=== PATIENT | male | born 1975 | race Hispanic/Latino ===

== ENCOUNTER 2020-06-10 20:30 | Emergency (ER) | payer OTHER ==
[2020-06-10] MEDS ORDERED: Acetaminophen 500 MG TAB ONE (21:02)
[2020-06-10] MEDS ORDERED: cefTRIAXone\\ROCEPHIN 2 GM VIAL ONE (21:02)
[2020-06-10] MEDS ORDERED: Ketorolac Tromethamine 30 MG/ML VIAL ONE (21:02)
[2020-06-10 21:07] LABS: #Lymphocytes 1.1 thou/uL (1.20-3.40); #Monocytes 0.2 thou/uL (0.11-0.59); #Neutrophils 5.8 thou/uL (1.40-6.50); %Eosinophils 0.1 % (0.0-10.0); %Lymphocytes 14.8 % (21.0-51.0); %Monocytes 3.4 % (0.0-10.0); %Neutrophils 81.8 % (42.0-75.0); Hemoglobin 14.9 g/dL (14.0-18.0); Mean Corpuscular HGB CONC 33.2 g/dL (32.0-36.0); Mean Corpuscular Hemoglobin 29.2 pg (27.0-31.0); Mean Corpuscular Volume 87.8 fL (78.0-98.0); Mean Platelet Volume 6.7 fL (7.4-10.4); Platelet Count 233 thou/uL (130-400); RBC Distribution Width 11.8 % (11.5-14.5); Red Blood Cell (RBC) Count 5.11 mill/uL (4.70-6.10); White Blood Cell (WBC) Count 7.1 thou/uL (4.8-10.8)
--- NOTE | 2020-06-10 21:07 | RAD ---
Exam: Chest one view HISTORY:COVID patient. Cough. Comparison: None FINDINGS: Cardiac silhouette: Normal Aorta: Unremarkable Pulmonary vessels: Normal Costophrenic angles: Clear LUNGS: Multi lobar interstitial and alveolar opacities. Pneumothorax: None Osseous abnormalities: None IMPRESSION: Multi lobar COVID pneumonia
[2020-06-10 21:30] LABS: ALT (SGPT) 30 U/L (8-55); AST (SGOT) 29 U/L (5-34); Albumin 3.7 g/dL (3.5-5.0); Alkaline Phosphatase 55 U/L (40-110); Anion Gap 15 mmol/L (10-20); BUN (Urea Nitrogen) 11 mg/dL (8.9-20.6); Bilirubin, Total 0.5 mg/dL (0.2-1.2); Calc. Creatinine Clearance 0 mL/min (70-130); Calcium 8.4 mg/dL (7.8-10.44); Carbon Dioxide 24 mmol/L (22-29); Chloride 101 mmol/L (98-107); Globulin 4.1 g/dL (2.4-3.5); Glucose 145 mg/dL (70-105); Protein, Total 7.8 g/dL (6.0-8.3); Sodium 136 mmol/L (136-145)
== END 2020-06-10 22:58 | disposition home or self-care (01) ==
LOC: ERS 20:30
DX: U07.1 COVID-19 (principal); J12.82 Pneumonia due to coronavirus disease 2019; R55 Syncope and collapse
CPT/HCPCS: 36415; 71045; 80053; 83605; 85025; 87040; 93005; 96365; 96375; J0696; J1885

== ENCOUNTER 2020-06-12 12:55 | Inpatient (IN) | payer SELFPAY ==
[2020-06-12] MEDS ORDERED: Dexamethasone 4 mg/ml Vial ONE (14:34)
[2020-06-12 21:59] VITALS: BMI 35.5
[2020-06-13] MEDS: Benzonatate 100 MG CAP PO PRN ×3 (03:34→20:56)
[2020-06-13] MEDS ORDERED: REMDESIVIR (EUA) 200 MG in Sodium Chloride 0.9% 250 ML 210 ML IV SCH (04:00)
[2020-06-13 05:17] LABS: SARS-CoV-2 MS2 Positive; SARS-CoV-2 N Gene Positive; SARS-CoV-2 S Gene Positive; SARS-CoV-2 by NAA DETECTED (NotDetected); SARS-CoV-2 orf1ab Positive
[2020-06-13] MEDS ORDERED: hydrALAZINE 10 MG TAB PO PRN (07:04)
[2020-06-13] MEDS ORDERED: cefTRIAXone\\ROCEPHIN 1 GM in Sodium Chloride 0.9% 100 ML IVPB SCH (08:00)
[2020-06-13] MEDS: Dexamethasone 4 MG TAB PO SCH (08:06)
[2020-06-13] MEDS: Enoxaparin Sodium 40 MG/0.4 ML SYRINGE SC SCH (08:06)
[2020-06-13] MEDS: Lisinopril 5 MG TAB PO SCH (08:06)
[2020-06-13] MEDS: Azithromycin 500 MG in Sodium Chloride 0.9% 250 ML 250 ML IVPB SCH (08:07)
[2020-06-13] MEDS ORDERED: FLU VACC QS2020-21(6MOS UP)/PF 60 MCG/0.5 ML SYRINGE IM ONE (21:00)
[2020-06-14] MEDS: Benzonatate 100 MG CAP PO PRN ×2 (02:10→21:23)
[2020-06-14] MEDS: REMDESIVIR (EUA) 100 MG in Sodium Chloride 0.9% 250 ML 230 ML IV SCH (04:13)
--- NOTE | 2020-06-14 06:14 | PDOC.FM ---
- Subjective Subjective: Reports poor sleep last night. Denies SOB or wheezing. No headache, vision changes, chest pain, palpitations and abdominal pain. - Objective MAR Reviewed: Yes Vital Signs & Weight: Vital Signs (12 hours) Temp Pulse Resp BP Pulse Ox 06/13/20 19:26 97.5 F L 80 18 155/83 H 96 Weight Admit Weight 115.666 kg Weight 115.666 kg I&O: 06/12/20 06/13/20 06/14/20 06:59 06:59 06:59 Intake Total 1220 1750 Output Total 300 Balance 920 1750 Phys Exam - Physical Examination Constitutional: NAD HEENT: moist MMs, sclera anicteric Neck: supple Respiratory: no wheezing, no rales, no rhonchi, clear to auscultation bilateral Sat 95% on 4L Cardiovascular: RRR, no significant murmur Gastrointestinal: soft, non-tender, positive bowel sounds Musculoskeletal: no edema Neurological: non-focal Psychiatric: normal affect Skin: no rash Dx/Plan - Plan Plan: Patient is a 44 y/o male with an unremarkable PMH who presents to the ED for evaluation of SOB and suspicion of COVID-19 infection. #AHRF 2/ COVID PNA -Patient's symptoms reportedly began on 06/02. Initial lab work: D-Dimer: 1.29, Procal: 0.4, ESR: 95, Ferritin: 4021, CRP: 23.81, LDH: 567. On admission, patient was sat'ing 85% on RA -CXR: Bilateral interstitial and alveolar infiltrates, consistent with COVID-19 PNA -CTA: Negative for PE, bilateral interstitial and alveolar infiltrates, consistent with COVID-19 PNA -s/p Remdesivir, Convalescent Plasma, Azithro (06/12-06/14), Ceftriaxone (06/12-06/13) -Dexamethasone 6 mg IV daily -Wean O2 as tolerated. Currently on 4L NC #Elevated BP w/o Dx of HTN Multiple elevated BPs since admission without a reported Dx of HTN -Continue Lisinopril 5 mg PO daily -Hydralazine 10 mg PO PRN #Poor sleep -Start melatonin HS PCP: CC Code: Full Diet: HH w/ Low Sodium Activity: Ad jesika VTE PPx: Lovenox 40 mg SC BID Dispo: Patient is currently stable and admitted to the Medical Floor for ongoing management s/p AHRF due to COVID-19 PNA. Will continue to monitor respiratory status closely and continue with pharmacological intervention as per above Addendum - Attending - Attending Attestation Date/Time: 06/14/20 1744 I personally evaluated the patient and discussed the management with Dr. Streeter I agree with the History, Examination, Assessment and Plan documented above with any addition or exceptions noted below.
[2020-06-14] MEDS: Dexamethasone 4 MG TAB PO SCH (08:21)
[2020-06-14] MEDS: Azithromycin 500 MG in Sodium Chloride 0.9% 250 ML 250 ML IVPB SCH (08:21)
[2020-06-14] MEDS: Lisinopril 5 MG TAB PO SCH (08:21)
[2020-06-14] MEDS: Enoxaparin Sodium 40 MG/0.4 ML SYRINGE SC SCH (08:22)
[2020-06-14] MEDS ORDERED: Melatonin 3 MG TAB PO PRN (09:04)
[2020-06-15] MEDS: REMDESIVIR (EUA) 100 MG in Sodium Chloride 0.9% 250 ML 230 ML IV SCH (04:08)
--- NOTE | 2020-06-15 06:21 | PDOC.FM ---
- Subjective Subjective: Reports feeling well. Denies headache, chest pain, SOB, nausea, abdominal pain and edema. Notes occasional SOB with ambulation. - Objective MAR Reviewed: Yes Vital Signs & Weight: Vital Signs (12 hours) Temp Pulse Resp BP Pulse Ox 06/14/20 23:56 98.0 F 67 18 161/82 H 95 06/14/20 20:00 97.9 F 74 18 165/78 H 93 L Weight Admit Weight 115.666 kg Weight 115.666 kg I&O: 06/13/20 06/14/20 06/15/20 06:59 06:59 06:59 Intake Total 1220 1750 Output Total 300 Balance 920 1750 Phys Exam - Physical Examination Constitutional: NAD HEENT: moist MMs, sclera anicteric Neck: full ROM Respiratory: clear to auscultation bilateral Cardiovascular: RRR, no significant murmur Gastrointestinal: soft, non-tender, positive bowel sounds Musculoskeletal: no edema Neurological: non-focal Psychiatric: normal affect Skin: no rash Dx/Plan - Plan Plan: Patient is a 44 y/o male with an unremarkable PMH who presents to the ED for evaluation of SOB and suspicion of COVID-19 infection. #AHRF 2/ COVID PNA -Patient's symptoms reportedly began on 06/02. Initial lab work: D-Dimer: 1.29, Procal: 0.4, ESR: 95, Ferritin: 4021, CRP: 23.81, LDH: 567. On admission, patient was sat'ing 85% on RA -CXR: Bilateral interstitial and alveolar infiltrates, consistent with COVID-19 PNA -CTA: Negative for PE, bilateral interstitial and alveolar infiltrates, consistent with COVID-19 PNA -s/p Remdesivir, Convalescent Plasma, Azithro (06/12-06/14), Ceftriaxone (06/12-06/13) -Dexamethasone 6 mg IV daily -Wean O2 as tolerated. Currently on 4L NC #Elevated BP w/o Dx of HTN Multiple elevated BPs since admission without a reported Dx of HTN -Continue Lisinopril 5 mg PO daily -Hydralazine 10 mg PO PRN #Poor sleep -Start melatonin HS PCP: CC Code: Full Diet: HH w/ Low Sodium Activity: Ad jesika VTE PPx: Lovenox 40 mg SC BID Dispo: Patient is admitted to the Medical Floor for ongoing management s/p AHRF due to COVID-19 PNA. Has excellent clinical prognosis. If home O2 is available today, patient is stable for discharge. Given the clinical prognosis, would not benefit from additional doses of remdesivir. Addendum - Attending - Attending Attestation Date/Time: 06/15/20 0160 I personally evaluated the patient and discussed the management with Dr. Streeter I agree with the History, Examination, Assessment and Plan documented above with any addition or exceptions noted below. Patient stable for dismissal with home oxygen when this can be arranged.
[2020-06-15 06:35] LABS: ALT (SGPT) 38 U/L (8-55); AST (SGOT) 24 U/L (5-34); Alkaline Phosphatase 54 U/L (40-110); Bilirubin, Direct 0.2 mg/dL (0.1-0.3); Bilirubin, Total 0.5 mg/dL (0.2-1.2); Protein, Total 6.8 g/dL (6.0-8.3)
[2020-06-15] MEDS: Dexamethasone 4 MG TAB PO SCH (08:23)
[2020-06-15] MEDS: Lisinopril 5 MG TAB PO SCH (08:23)
[2020-06-15] MEDS: Enoxaparin Sodium 40 MG/0.4 ML SYRINGE SC SCH (08:24)
[2020-06-15] MEDS: Benzonatate 100 MG CAP PO PRN (22:29)
[2020-06-16] MEDS: REMDESIVIR (EUA) 100 MG in Sodium Chloride 0.9% 250 ML 230 ML IV SCH (04:53)
--- NOTE | 2020-06-16 06:14 | PDOC.FM ---
- Subjective Subjective: Reports feeling well today. Says he is ready to go home. Denies headache, chest pain, SOB, wheezing and palpitations. - Objective MAR Reviewed: Yes Vital Signs & Weight: Vital Signs (12 hours) Temp Pulse Resp BP Pulse Ox 06/15/20 20:00 98 06/15/20 19:34 97.7 F 68 18 159/81 H 98 Weight Admit Weight 115.666 kg Weight 115.666 kg I&O: 06/14/20 06/15/20 06/16/20 06:59 06:59 06:59 Intake Total 1750 Balance 1750 Phys Exam - Physical Examination Constitutional: NAD HEENT: moist MMs, sclera anicteric Neck: full ROM Respiratory: clear to auscultation bilateral Sat'ing 95% 4L Cardiovascular: RRR, no significant murmur Gastrointestinal: soft, non-tender, positive bowel sounds Musculoskeletal: no edema Neurological: non-focal Psychiatric: normal affect, A&O x 3 Skin: no rash Dx/Plan - Plan Plan: Patient is a 44 y/o male with an unremarkable PMH who presents to the ED for evaluation of SOB and suspicion of COVID-19 infection. #AHRF 2/ COVID PNA -Patient's symptoms reportedly began on 06/02. Initial lab work: D-Dimer: 1.29, Procal: 0.4, ESR: 95, Ferritin: 4021, CRP: 23.81, LDH: 567. On admission, patient was sat'ing 85% on RA -CXR: Bilateral interstitial and alveolar infiltrates, consistent with COVID-19 PNA -CTA: Negative for PE, bilateral interstitial and alveolar infiltrates, consistent with COVID-19 PNA -s/p Remdesivir, Convalescent Plasma, Azithro (06/12-06/14), Ceftriaxone (06/12-06/13) -Dexamethasone 6 mg IV daily -Wean O2 as tolerated. Currently on 4L NC. -CM consulted for home O2 need #Elevated BP w/o Dx of HTN Multiple elevated BPs since admission without a reported Dx of HTN -Continue Lisinopril 5 mg PO daily. F/u in clinic for further management -Hydralazine 10 mg PO PRN #Poor sleep -Melatonin HS PCP: CC Code: Full Diet: HH w/ Low Sodium Activity: Ad jesika VTE PPx: Lovenox 40 mg SC BID Dispo: Patient is admitted to the Medical Floor for ongoing management s/p AHRF due to COVID-19 PNA. Has excellent clinical prognosis. If home O2 is available today, patient is stable for discharge. Given the clinical prognosis, would not benefit from additional doses of remdesivir. Addendum - Attending - Attending Attestation Date/Time: 06/16/20 9812 I personally evaluated the patient and discussed the management with Dr. Streeter. I agree with the History, Examination, Assessment and Plan documented above with any addition or exceptions noted below. Patient feeling very well. Reports eagerness to discharge. He has been ambulating frequently around the room, feels very well and minimal DORSEY. He reports the lowest he has seen his O2 sats are 93% with ambulation. We are working to set up home O2, and if successful, possible dc home today.
[2020-06-16 07:18] LABS: ALT (SGPT) 50 U/L (8-55); AST (SGOT) 33 U/L (5-34); Albumin 3.2 g/dL (3.5-5.0); Alkaline Phosphatase 52 U/L (40-110); Bilirubin, Direct 0.2 mg/dL (0.1-0.3); Bilirubin, Total 0.5 mg/dL (0.2-1.2)
[2020-06-16] MEDS: Dexamethasone 4 MG TAB PO SCH (08:14)
[2020-06-16] MEDS: Lisinopril 5 MG TAB PO SCH (08:14)
[2020-06-16] MEDS: Enoxaparin Sodium 40 MG/0.4 ML SYRINGE SC SCH (08:14)
[2020-06-17] MEDS: REMDESIVIR (EUA) 100 MG in Sodium Chloride 0.9% 250 ML 230 ML IV SCH (04:58)
--- NOTE | 2020-06-17 06:46 | PDOC.FM ---
- Subjective Subjective: Reports he feels "great." Denies headache, chest pain, SOB and palpitations. Is ready to go home. - Objective MAR Reviewed: Yes Vital Signs & Weight: Vital Signs (12 hours) Temp Pulse Resp BP BP Pulse Ox 06/17/20 04:00 97.9 F 69 19 130/82 96 06/16/20 20:00 97.8 F 62 20 160/78 H 95 06/16/20 19:46 97.9 F 78 20 144/69 H 93 L Weight Admit Weight 115.666 kg Weight 115.666 kg I&O: 06/15/20 06/16/20 06/17/20 06:59 06:59 06:59 Intake Total 720 Balance 720 Phys Exam - Physical Examination Constitutional: NAD HEENT: moist MMs, sclera anicteric Neck: full ROM Respiratory: no wheezing, clear to auscultation bilateral Sat 92% on 2L Cardiovascular: RRR, no significant murmur Gastrointestinal: soft, non-tender, positive bowel sounds Musculoskeletal: no edema Neurological: non-focal Psychiatric: normal affect, A&O x 3 Skin: no rash Dx/Plan - Plan Plan: Patient is a 44 y/o male with an unremarkable PMH who presents to the ED for evaluation of SOB and suspicion of COVID-19 infection. #AHRF 2/2 COVID PNA -Patient's symptoms reportedly began on 06/02. Initial lab work: D-Dimer: 1.29, Procal: 0.4, ESR: 95, Ferritin: 4021, CRP: 23.81, LDH: 567. On admission, patient was sat'ing 85% on RA -CXR: Bilateral interstitial and alveolar infiltrates, consistent with COVID-19 PNA -CTA: Negative for PE, bilateral interstitial and alveolar infiltrates, consistent with COVID-19 PNA -s/p Remdesivir, Convalescent Plasma, Azithro (06/12-06/14), Ceftriaxone (06/12-06/13) -Dexamethasone 6 mg. Complete course today. -Wean O2 as tolerated. Currently on 2L NC. -CM consulted for home O2 need. #Elevated BP w/o Dx of HTN Multiple elevated BPs since admission without a reported Dx of HTN -Continue Lisinopril 5 mg PO daily. F/u in clinic for further management -Hydralazine 10 mg PO PRN #Poor sleep -Melatonin HS PCP: CC Code: Full Diet: HH w/ Low Sodium Activity: Ad jesika VTE PPx: Lovenox 40 mg SC BID Dispo: Patient is admitted to the Medical Floor for ongoing management s/p AHRF due to COVID-19 PNA. Has excellent clinical prognosis. Given the clinical prognosis, would not benefit from additional doses of remdesivir. Anticipate discharge today pending home O2 availability Addendum - Attending - Attending Attestation Date/Time: 06/17/20 6217 I personally evaluated the patient and discussed the management with Dr. Streeter. I agree with the History, Examination, Assessment and Plan documented above with any addition or exceptions noted below. Patient reports feeling very well. Apparently he was able to ambulate extensively yesterday without O2 supplement. We will ensure he is able to to do the same today and if so, will be able to d/c without the need for O2 concentrator.
[2020-06-17 06:55] LABS: ALT (SGPT) 64 U/L (8-55); AST (SGOT) 39 U/L (5-34); Albumin 3.3 g/dL (3.5-5.0); Alkaline Phosphatase 68 U/L (40-110); Bilirubin, Direct 0.2 mg/dL (0.1-0.3); Bilirubin, Total 0.4 mg/dL (0.2-1.2); Protein, Total 7.2 g/dL (6.0-8.3)
[2020-06-17] MEDS: Dexamethasone 4 MG TAB PO SCH (08:09)
[2020-06-17] MEDS: Lisinopril 5 MG TAB PO SCH (08:10)
[2020-06-17 08:44] VITALS: BP 148/88; TEMP 97.7
[2020-06-17] MEDS: Enoxaparin Sodium 40 MG/0.4 ML SYRINGE SC SCH (09:06)
== END 2020-06-17 12:06 | disposition home or self-care (01) | DRG 177 ==
LOC: ERS 12:55 → T4-B 17:34
PROVIDERS: ADMIT Family Medicine; ATTEND Family Medicine
PROC: 8E0ZXY6 Isolation (ICD-10-PCS; 2020-06-12)
PROC: XW033E5 Introduction of Remdesivir Anti-infective into Peripheral Vein, Percutaneous Approach, New Technology Group 5 (ICD-10-PCS; principal; 2020-06-13)
PROC: XW13325 Transfusion of Convalescent Plasma (Nonautologous) into Peripheral Vein, Percutaneous Approach, New Technology Group 5 (ICD-10-PCS; 2020-06-13)
DX: U07.1 COVID-19 (principal); J12.82 Pneumonia due to coronavirus disease 2019; J96.01 Acute respiratory failure with hypoxia; R03.0 Elevated blood-pressure reading, without diagnosis of hypertension; G47.9 Sleep disorder, unspecified; Z23 Encounter for immunization; Z79.899 Other long term (current) drug therapy
CPT/HCPCS: 36415; 36416; 36430; 80076; 86850; 86900; 86901; 87635; 90471; 90662; G0008; J0456; J0696; J1100; J1650; J3490; J7050; J8540; P9017; U0003

== ENCOUNTER → 2020-06-12 | Emergency (ER) | payer SELFPAY ==
[~2020-06-12] MED LIST: Acetaminophen 325 MG TAB PO PRN; Albuterol 200 PUFF (6.7GM INHALER) ONE; Benzonatate 100 MG CAP PO PRN; Dexamethasone 4 MG TAB PO SCH; Enoxaparin Sodium 40 MG/0.4 ML SYRINGE SC SCH; Iopamidol-370 76% 500 ML 1 ML ONE; Ondansetron ODT 4 MG TAB PO PRN; Ondansetron PF 4 MG/2 ML Vial IVP PRN; Pharmacy to Dose REMDESIVIR IVPB PRN; REMDESIVIR (EUA) 100 MG in Sodium Chloride 0.9% 250 ML 230 ML IV SCH; REMDESIVIR (EUA) 200 MG in Sodium Chloride 0.9% 250 ML 210 ML IV SCH
[2020-06-12 14:07] LABS: #Lymphocytes 0.8 thou/uL (1.20-3.40); #Monocytes 0.1 thou/uL (0.11-0.59); #Neutrophils 8.2 thou/uL (1.40-6.50); %Lymphocytes 8.5 % (21.0-51.0); %Monocytes 1.6 % (0.0-10.0); Hemoglobin 14.4 g/dL (14.0-18.0); Mean Corpuscular HGB CONC 33.8 g/dL (32.0-36.0); Mean Corpuscular Hemoglobin 29.8 pg (27.0-31.0); Mean Corpuscular Volume 88.2 fL (78.0-98.0); Mean Platelet Volume 6.6 fL (7.4-10.4); Platelet Count 311 thou/uL (130-400); Red Blood Cell (RBC) Count 4.84 mill/uL (4.70-6.10); White Blood Cell (WBC) Count 9.1 thou/uL (4.8-10.8)
--- NOTE | 2020-06-12 14:24 | RAD ---
RADIOGRAPH CHEST 1 VIEW: DATE: 06/12/2020 TIME: 2:14 PM HISTORY: 44-year-old male with dyspnea COMPARISON: 06/10/2020 FINDINGS: Diffuse bilateral, very extensive mixed interstitial and alveolar infiltrates, mostly alveolar, have become slightly worse. Left apex is relatively spared, but all other lung aleman are affected. No pneumothorax. IMPRESSION: Mild interval worsening of diffuse bilateral moderately severe infiltrates: Evidence for COVID-19 pne umonia
[2020-06-12 14:28] LABS: ALT (SGPT) 28 U/L (8-55); AST (SGOT) 30 U/L (5-34); Albumin 3.4 g/dL (3.5-5.0); Alkaline Phosphatase 59 U/L (40-110); Anion Gap 14 mmol/L (10-20); BUN (Urea Nitrogen) 9 mg/dL (8.9-20.6); Bilirubin, Total 0.6 mg/dL (0.2-1.2); Calc. Creatinine Clearance 0 mL/min (70-130); Calcium 8.7 mg/dL (7.8-10.44); Carbon Dioxide 23 mmol/L (22-29); Chloride 104 mmol/L (98-107); Globulin 4.1 g/dL (2.4-3.5); Glucose 121 mg/dL (70-105); Potassium 3.8 mmol/L (3.5-5.1); Protein, Total 7.5 g/dL (6.0-8.3); Sodium 137 mmol/L (136-145)
--- NOTE | 2020-06-12 16:02 | CT ---
EXAM: CT pulmonary angiogram with IV contrast and 3-D MIP reconstructions PROVIDED CLINICAL HISTORY: Dyspnea COMPARISON: None FINDINGS: There is no evidence for central or segmental pulmonary embolus. There is extensive bilateral consolidation in a patchy manner. No pleural fluid or pneumothorax apparent. There are prominent by number and upper limits normal in caliber mediastinal and hilar lymph nodes. The airway appears patent and of normal caliber. The visualized portions of the upper abdomen demonstrate no acute findings. The osseous structures demonstrate no concerning lytic or blastic lesions. IMPRESSION: 1. No evidence for central or segmental pulmonary embolus. 2. Extensive bilateral lung consolidation, typical but not specific for Covid pneumonia. 3. Mediastinal and hilar lymph node prominence.
--- NOTE | 2020-06-12 18:10 | PDOC.FPRHP ---
- History of Present Illness Chief Complaint: coughing, SOB History of Present Illness: 44 yo M with no known PMH comes to ER for worsening cough, SOB. Sxs started 06/02, endorses subjective, fever, dyspnea. 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 He is went to get tested at [facility] on Tuesday but results are still pending. He was seen in the ER 06/10/19 in which he was given a dose of rocephin and sent home on IBP and tessalon pearles. Due to feeling worse he came to the ER. He is requiring 4L N.C. and dyspneic with talking but fine with resting. Ddimer elevated at 1.29, and CTA was negative for PE but showed b/l interstitial infiltrates and worsening of his CXR compared to two days ago. - Allergies/Adverse Reactions Allergies Allergy/AdvReac Type Severity Reaction Status Date / Time No Known Drug Allergies Allergy Verified 06/12/20 21:51 - Home Medications Medication Instructions Recorded Confirmed Type Azithromycin 250 mg PO DAILY 06/12/20 06/12/20 History Benzonatate 1 tablet PO Q6HR PRN 06/12/20 06/12/20 History Ibuprofen 800 mg PO Q8H PRN 06/12/20 06/12/20 History - History PMHx:Denies, hasn't seen a doctor in a long time PSHx: appendectomy FHx: n/c Social: denies TAD - Review of Systems General: reports: fever/chills. denies: weight/appetite/sleep changes ENT: denies: nasal congestion, rhinorrhea Respiratory: reports: cough, congestion, shortness of breath, exercise intolerance Cardiovascular: reports: orthopnea. denies: chest pain, palpitation, edema Gastrointestinal: reports: diarrhea, abdominal pain. denies: nausea Skin: denies: rashes, lesions, jaundice Musculoskeletal: denies: pain, tenderness, stiffness Neurological: reports: weakness. denies: numbness, seizure Psychological: denies: anxiety, depression - Vital signs BP: 141/72, Pulse: 106, Resp: 33, O2 sat: 94 on (3L Oxygen), Time: 06/12/2020 17:13. - Physical Exam Constitutional: NAD (mild distress with talking), awake, alert and oriented, well developed HEENT: normocephalic and atraumatic, PERRLA, EOMI, conjunctiva clear, normal nasal mucosa, MMM Neck: supple, FROM, trachea midline, no JVD -Heart: tachycardic Lungs: good air movement, other (bilateral rhonchi in both lung aleman) Abdomen: soft, non-tender Musculoskeletal: normal structure, normal tone, ROM grossly normal FMR H&P: Results - Labs Result Diagrams: 06/12/20 13:51 06/12/20 13:51 Lab results: WBC 9.1 thou/uL (4.8-10.8) 06/12/20 13:51 Hgb 14.4 g/dL (14.0-18.0) 06/12/20 13:51 Hct 42.6 % (42.0-52.0) 06/12/20 13:51 MCV 88.2 fL (78.0-98.0) 06/12/20 13:51 Plt Count 311 thou/uL (130-400) 06/12/20 13:51 Neutrophils % 90.0 % (42.0-75.0) H 06/12/20 13:51 Sodium 137 mmol/L (136-145) 06/12/20 13:51 Potassium 3.8 mmol/L (3.5-5.1) 06/12/20 13:51 Chloride 104 mmol/L (98-107) 06/12/20 13:51 Carbon Dioxide 23 mmol/L (22-29) 06/12/20 13:51 BUN 9 mg/dL (8.9-20.6) 06/12/20 13:51 Creatinine 0.80 mg/dL (0.7-1.3) 06/12/20 13:51 Glucose 121 mg/dL (70-105) H 06/12/20 13:51 Calcium 8.7 mg/dL (7.8-10.44) 06/12/20 13:51 Total Bilirubin 0.6 mg/dL (0.2-1.2) 06/12/20 13:51 AST 30 U/L (5-34) 06/12/20 13:51 ALT 28 U/L (8-55) 06/12/20 13:51 Alkaline Phosphatase 59 U/L (40-110) 06/12/20 13:51 B-Natriuretic Peptide 29.2 pg/mL (0-100) 06/12/20 14:39 Serum Total Protein 7.5 g/dL (6.0-8.3) 06/12/20 13:51 Albumin 3.4 g/dL (3.5-5.0) L 06/12/20 13:51 - Radiology Interpretation Chest x-ray Status: image reviewed by me, report reviewed by me Additional comment: diffuse bilateral interstitial and alveolar infiltrates, no pneumothorax CT scan - chest Status: image reviewed by me, report reviewed by me Additional comment: Extensive b/l lung consolidation, negative for PE FMR H&P: A/P - Plan AHRF 2/2 COVID PNA -85% on RA -> requiring 4L N.C. -CXR and CTA consistent with COVID findings. B/l interstitial & alveolar infiltrates. Neg for PE. -Low suspicion for bacterial etiology. Will obtain procal. -Continue supportive care -Remdesivir, steroids, and convalescent plasma -Admit inpt/medical dvt ppx: lovenox gi ppx: none abx: none admit: inpt/medical los: >[address] Velázquez FMR H&P: Upper Level - Plan Date/Time: 06/12/201809 I, [], have evaluated this patient and agree with findings/plan as outlined by i connien resident. Pertinent changes/additions are listed here. Addendum - Attending - Attending Attestation Date/Time: 06/12/202103 I personally evaluated the patient and discussed the management with Dr. Kimball I agree with the History, Examination, Assessment and Plan documented above with any addition or exceptions noted below -44 yo M with no known PMH comes to ER for worsening cough, SOB. Sxs started 06/02, endorses subjective fever, dyspnea. 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 He went to get tested at [facility] on Tuesday but results are still pending. He was seen in the ER 06/10/19 in which he was given a dose of rocephin and sent home on albuterol, zithromax, and tessalon pearles. Continued to have SOB which has been worsening and so returned to ER. SOB primarily with exertion/movement. has also had symptoms. T98.3 P96 RR22 BP 148/91 96% on 4LNC Exam repeated by me and agree with resident's findings. Labs: WBC=9.1, BMP-normal, Procal=0.40, Ddimer=1.29, CRP=23.81, CTA chest-no PE; extensive pulmonary consolidation b/l A/P: 1) Acute hypoxic resp failure secondary to COVID pneumo paresh- continue O2 as needed. Wean as tolerated. 2) COVID pneumonia- plasma and remdesivir ordered. Continue to monitor status.
[2020-06-12 21:43] LABS: Hemoglobin A1c 5.7 % (4.0-6.0)
--- NOTE | 2020-06-13 06:44 | PDOC.FM ---
- Subjective Subjective: Patient was resting comfortably in bed at the time of evaluation. Patient denied any acute overnight events, particularly with regard to chest pain or worsening SOB. No acute overnight events were reported by the Resident Night Team or Nursing Staff. - Objective Result Diagrams: 06/13/20 06:56 06/13/20 06:56 Phys Exam - Physical Examination Constitutional: NAD HEENT: moist MMs Neck: no nodes, supple, full ROM Respiratory: no wheezing, no rales, no rhonchi, clear to auscultation bilateral Cardiovascular: RRR, no significant murmur, no rub Gastrointestinal: soft, non-tender, no distention, positive bowel sounds Musculoskeletal: no edema, pulses present Neurological: non-focal, moves all 4 limbs Psychiatric: normal affect Dx/Plan (1) Acute and chronic respiratory failure with hypoxia Code(s): J96.21 - ACUTE AND CHRONIC RESPIRATORY FAILURE WITH HYPOXIA Status: Acute (2) COVID-19 Code(s): U07.1 - COVID-19 Status: Acute - Plan Plan: Patient is a 44 y/o male with an unremarkable PMH who presents to the ED for evaluation of SOB and suspicion of COVID-19 infection. #AHRF 2/2 COVID PNA -Patient's symptoms reportedly began on 06/02 -On admission, patient was sat'ing 85% on RA - improved with 4L O2 via NC -D-Dimer: 1.29 -Procal: 0.4 -ESR: 95 -Ferritin: 4021 -CRP: 23.81 -LDH: 567 -CXR: Bilateral interstitial and alveolar infiltrates, consistent with COVID-19 PNA -CTA: Negative for PE, bilateral interstitial and alveolar infiltrates, consistent with COVID-19 PNA -s/p Remdesivir, with Convalescent Plasma currently pending -Dexamethasone 6 mg IV daily -Azithromycin 500 mg daily -Low suspicion for bacterial infection - will consider dc Ceftriaxone later this AM #Elevated BP w/o Dx of HTN -Multiple elevated BPs since admission without a reported Dx of HTN -Will add Lisinopril 5 mg PO daily -Hydralazine 10 mg PO PRN PCP: CC Code: Full Diet: HH w/ Low Sodium Activity: Ad jesika VTE PPx: Lovenox 40 mg SC BID ABx: As per above Dispo: Patient is currently stable and admitted to the Medical Floor for ongoing management s/p AHRF due to COVID-19 PNA. Will continue to monitor respiratory status closely and continue with pharmacological intervention as per above. Expected LOS > 48H. Addendum - Attending - Attending Attestation Date/Time: 06/13/20 3732 I personally evaluated the patient and discussed the management with Dr. Coelho. I agree with the History, Examination, Assessment and Plan documented above with any addition or exceptions noted below. Patient here with hypoxic resp failure 2/2 COVID pneumonia. Steroids, Plasma, Remdesevir. Wean O2 as tolerated. Hopeful can keep him on NC and will be a short turnaround.
[2020-06-13 07:29] LABS: Hemoglobin 13.6 g/dL (14.0-18.0); Mean Corpuscular HGB CONC 34.5 g/dL (32.0-36.0); Mean Corpuscular Hemoglobin 30.4 pg (27.0-31.0); Mean Corpuscular Volume 88.2 fL (78.0-98.0); Mean Platelet Volume 6.6 fL (7.4-10.4); Platelet Count 340 thou/uL (130-400); RBC Distribution Width 11.9 % (11.5-14.5); Red Blood Cell (RBC) Count 4.48 mill/uL (4.70-6.10); White Blood Cell (WBC) Count 4.5 thou/uL (4.8-10.8)
[2020-06-13 07:48] LABS: ALT (SGPT) 35 U/L (8-55); AST (SGOT) 33 U/L (5-34); Albumin 3.1 g/dL (3.5-5.0); Alkaline Phosphatase 56 U/L (40-110); Anion Gap 11 mmol/L (10-20); BUN (Urea Nitrogen) 12 mg/dL (8.9-20.6); Bilirubin, Total 0.4 mg/dL (0.2-1.2); Calc. Creatinine Clearance 0 mL/min (70-130); Calcium 8.6 mg/dL (7.8-10.44); Carbon Dioxide 27 mmol/L (22-29); Chloride 104 mmol/L (98-107); Glucose 141 mg/dL (70-105); Potassium 3.9 mmol/L (3.5-5.1); Protein, Total 7.1 g/dL (6.0-8.3); Sodium 138 mmol/L (136-145)
[2020-06-13 08:14] LABS: Band 20 % (5-11); Lymphocytes 16 % (21-51); MDiff Complete? YES; Monocytes 2 % (0-10); Neutrophil 58 % (42-75); Platelet Morphology Comment Appears Adequate; RBC Morphology Normal; Reactive Lymphocytes 4 % (0-10)
== END ==
LOC: ERS 12:50
DX: U07.1 COVID-19 (principal); J12.81 Pneumonia due to SARS-associated coronavirus; R09.02 Hypoxemia
CPT/HCPCS: 36415; 71045; 71275; 80053; 82728; 83036; 83615; 83880; 84145; 84484; 85025; 85379; 85652; 86140; 93005; J7050; J8540; Q9967

== ENCOUNTER 2021-07-07 11:05 | Outpatient (CLI) | payer OTHER | END 2021-07-07 11:06 | disposition home or self-care (01) | LOC: BICCT 11:05 | PROVIDERS: ATTEND Nurse Practitioner Family | DX: R10.31 Right lower quadrant pain (principal) | CPT/HCPCS: 74178 ==

== ENCOUNTER 2025-03-25 09:59 | Emergency (ER) | payer SELFPAY ==
[2025-03-25 10:44] LABS: #Basophils 0.03 10x3/uL (0.0-0.2); #Eosinophils 0.32 10x3/uL (0.0-0.7); #Monocytes 0.45 10x3/uL (0.11-0.59); #Neutrophils 3.35 10x3/uL (1.40-6.50); %Basophils 0.5 % (0.0-1.0); %Eosinophils 5.0 % (0.0-10.0); %Lymphocytes 34.4 % (21.0-51.0); %Monocytes 7.0 % (0.0-10.0); %Neutrophils 52.2 % (42.0-75.0); Hematocrit 44.9 % (42.0-52.0); Hemoglobin 15.4 g/dL (14.0-18.0); Mean Corpuscular Hemoglobin 29.6 pg (27.0-31.0); Mean Corpuscular Volume 86.3 fL (78.0-98.0); Platelet Count 235 10x3/uL (130-400); Red Blood Cell (RBC) Count 5.20 mill/uL (4.70-6.10); White Blood Cell (WBC) Count 6.42 10x3/uL (4.8-10.8)
[2025-03-25 11:04] LABS: ALT (SGPT) 74 U/L (Less than 45); AST (SGOT) 37 U/L (11-34); Albumin 3.8 g/dL (3.1-4.5); Alkaline Phosphatase 68 U/L (40-110); Anion Gap 8 mmol/L (10-20); BUN (Urea Nitrogen) 10 mg/dL (8.9-20.6); Bilirubin, Total 0.5 mg/dL (0.3-1.2); Calc. Creatinine Clearance 0 mL/min (70-130); Calcium 9.1 mg/dL (7.8-10.44); Carbon Dioxide 27 mmol/L (22-29); Chloride 106 mmol/L (98-107); Globulin 3.4 g/dL (2.4-3.5); Glucose 90 mg/dL (70-105); Potassium 3.8 mmol/L (3.5-5.1); Sodium 137 mmol/L (136-145)
== END 2025-03-25 11:19 | disposition home or self-care (01) ==
LOC: ERS 09:59
DX: R21 Rash and other nonspecific skin eruption (principal); R22.0 Localized swelling, mass and lump, head
CPT/HCPCS: 80053; 85025; 99283